=== PATIENT | female | born 1975 | race Caucasian/White ===

== ENCOUNTER → 2017-02-03 | Outpatient (CLI) | payer BC ==
[~2017-02-03] MED LIST: AZEL30SP NAE; CETI10TA84 PO; FLUT0.15; GLUCPOW41 PO; IRON INFUSIONS IV; MULT-506 PO; PSEU60TA80 PO
[2017-02-03 12:12] LABS: BASO % 0.2 %; BASO ABS # 0.01 K/uL (0-0.2); COMPLETE YES; EOS % 0.3 %; HEMATOCRIT 40.7 % (37-47); LYMPH % 24.8 %; LYMPH ABS # 1.62 K/uL (1.2-3.4); MEAN CELL VOLUME 87.9 fL (80-100); MEAN CORPUSCULAR HEMOGLOBIN 28.9 pg (25-34); MEAN CORPUSCULAR HGB CONC 32.9 g/dl (32-36); MONO % 6.7 %; PLATELET COUNT 305 K/uL (130-400); RED BLOOD COUNT 4.63 M/uL (4.2-5.4); WHITE BLOOD COUNT 6.54 K/uL (4.8-10.8)
[2017-02-03 12:18] LABS: GLUCOSE 101 mg/dl (70-99)
[2017-02-03 12:22] LABS: TOTAL IRON BINDING CAPACITY 351 mcg/dl (250-450)
== END | disposition home or self-care (01) ==
LOC: C.LAB1850 09:17
PROVIDERS: ATTEND Internal Medicine
DX: D50.9 Iron deficiency anemia, unspecified (principal); E55.9 Vitamin D deficiency, unspecified; E34.9 Endocrine disorder, unspecified; E53.8 Deficiency of other specified B group vitamins; R73.9 Hyperglycemia, unspecified

== ENCOUNTER → 2017-03-29 | Outpatient (CLI) | payer BC ==
[2017-03-29 09:28] LABS: BASO % 0.2 %; BASO ABS # 0.01 K/uL (0-0.2); COMPLETE YES; EOS % 0.3 %; IG% 0.2 %; LYMPH % 26.1 %; LYMPH ABS # 1.74 K/uL (1.2-3.4); MEAN CELL VOLUME 90.1 fL (80-100); MEAN CORPUSCULAR HEMOGLOBIN 28.8 pg (25-34); MEAN PLATELET VOLUME 11.7 fL (7.4-10.4); MONO % 6.2 %; PLATELET COUNT 297 K/uL (130-400); RED BLOOD COUNT 4.44 M/uL (4.2-5.4); WHITE BLOOD COUNT 6.66 K/uL (4.8-10.8)
[2017-03-29 09:48] LABS: FERRITIN 6.4 ng/ml (8.0-388.0)
== END | disposition home or self-care (01) ==
LOC: C.LAB1850 07:00
PROVIDERS: ATTEND Nurse Practitioner
DX: D50.9 Iron deficiency anemia, unspecified (principal)

== ENCOUNTER → 2017-07-04 | Outpatient (CLI) | payer BC ==
[~2017-07-04] MED LIST changes: -AZEL30SP NAE; -CETI10TA84 PO; -FLUT0.15; -GLUCPOW41 PO; -MULT-506 PO; -PSEU60TA80 PO
--- NOTE | 2017-07-04 12:16 | DIAGNOSTIC IMAGING REPORT ---
VIDEO SWALLOW HISTORY: Dysphagia DYSPHAGIA TECHNIQUE: Video fluoroscopic evaluation of swallowing was performed in the AP and lateral projections by the speech pathology staff. The patient is fed nectar-thick and thin liquid barium, a barium coated wafer, and barium pudding. FLUOROSCOPY TIME: 1.5 minutes. COMPARISON STUDY: None. FINDINGS: There is normal hyoid excursion and epiglottic deflection. No significant penetration or aspiration identified. Swallowing function is within normal limits. Mild esophageal dysmotility IMPRESSION: 1. No aspiration identified. 2. Please see the speech pathologist report for detailed findings and recommendations. The above report was generated using voice recognition software. It may contain grammatical, syntax or spelling errors. Electronically signed by: Otis Oneal M.D. 07/04/2017 12:15 PM Dictated Date/Time: 07/04/2017 12:14 PM
--- NOTE | 2017-07-05 11:16 | SWALLOWING EVALUATION ---
HISTORY: This 41 year old woman was referred for a video swallow study at [facility] in order to rule out aspiration and identify the safest consistencies for optimal oral intake. The patient reports the sensation of food becoming stuck in her throat. She participated in a Barium Swallow study in 2014, with results being wnl. PMH is significant for gastric bypass and anemia. Current diet is regular. PROCEDURE: The patient was seen in the Radiology Department of [facility] for the [facility]SS. Cursory examination of the oral cavity revealed natural dentition in good condition. Oral motor function was wnl. The patient was seated on a stool and was viewed in both the Anterior-Posterior (A-P) and Lateral planes. Volitional phonation exercises completed in the A-P plane revealed bilateral vocal fold movement and vocal intensity within functional limits. In the lateral plane, the patient was given the following boluses: 1 tsp. thin liquid barium x 2, single swallow thin liquid barium self-presented from a cup, sequential swallows of thin liquid barium self-presented from a straw, 1 tsp. nectar-thick liquid barium, single swallow nectar-thick liquid barium self-presented from a cup, 1 tsp. barium pudding, and 1 club cracker coated in barium pudding. The patient was then repositioned into the A-P plane and given the following boluses: 1 tsp. nectar thick barium and 1 tsp. barium pudding. RESULTS: Oral Stage: Lip closure was adequate. The patient was able to maintain a cohesive liquid bolus in the oral cavity without any escape during the liquid bolus hold task. Mastication was timely and efficient. Lingual motion for bolus transport was noted to be slow. There was retention lining the tongue and palate after the swallow. The initiation of the pharyngeal swallow occurred when the bolus head reached the valleculae. Pharyngeal Stage: Soft palate elevation was complete. Laryngeal elevation revealed complete superior movement of the thyroid cartilage with complete approximation of the arytenoids to the epiglottic base. Anterior hyoid excursion and epiglottic deflection were complete. Laryngeal vestibular closure was complete. The pharyngeal stripping wave was present and complete. Pharyngeal contraction was complete. There was complete distention and duration of the opening to the pharyngoesophageal segment (PES). Tongue base retraction was reduced, with a trace column of contrast located between the tongue base and pharyngeal wall during the swallow. There was trace retention located in the valleculae after the swallow. There was no evidence of laryngeal penetration or aspiration during this study. There was minimal retention located in the pharynx after the swallow as well. Esophageal stage: There was mild mid-distal esophageal retention suggestive of esophageal dysmotility. SUMMARY/RECOMMENDATIONS: This patient presents with normal ada-pharyngeal swallowing mechanics. She presents with s/s of esophageal dysphagia. The following is recommended: 1. Regular diet, "slippery" and thin liquids. 2. ALINE precautions. Fully upright for meals and for 30 minutes after meals. Do not lay flat. 3. Safe swallow strategies: Avoid foods that are dry, thick, pasty, or doughy. Use of condiments such as gravy to assist with making foods moist. Rest breaks while eating. Alternate solids and liquids. Small frequent meals. 4. Follow up with PCP. Consider GI consultation and/or medication management for esophageal dysfunction as indicated. A summary of the results and recommendations was discussed with the patient immediately following the study with verbal understanding. The patient was also provided with verbal and written education regarding a "slippery" diet for improved comfort while eating (avoiding foods that are dry, thick, pasty, or doughy) as needed. She verbalized understanding. Thank you for referral of this patient. Please contact me at if any additional information is needed.
== END | disposition home or self-care (01) ==
LOC: C.RAD 11:10
PROVIDERS: ATTEND Internal Medicine Gastroenterology
DX: R13.10 Dysphagia, unspecified (principal); D50.9 Iron deficiency anemia, unspecified

== ENCOUNTER → 2017-07-04 | Outpatient (CLI) | payer BC ==
[2017-07-04 13:17] LABS: BASO % 0.2 %; BASO ABS # 0.01 K/uL (0-0.2); COMPLETE YES; EOS % 0.4 %; HEMATOCRIT 37.7 % (37-47); IG% 0.2 %; LYMPH % 30.5 %; LYMPH ABS # 1.64 K/uL (1.2-3.4); MEAN CELL VOLUME 90.4 fL (80-100); MEAN CORPUSCULAR HEMOGLOBIN 30.2 pg (25-34); MEAN CORPUSCULAR HGB CONC 33.4 g/dl (32-36); MEAN PLATELET VOLUME 11.8 fL (7.4-10.4); MONO % 5.2 %; NEUT % 63.5 %; PLATELET COUNT 270 K/uL (130-400); RED BLOOD COUNT 4.17 M/uL (4.2-5.4); WHITE BLOOD COUNT 5.37 K/uL (4.8-10.8)
== END | disposition home or self-care (01) ==
LOC: C.LAB1850 12:29
PROVIDERS: ATTEND Internal Medicine Hematology & Oncology
DX: D50.9 Iron deficiency anemia, unspecified (principal)

== ENCOUNTER → 2017-07-21 | Outpatient (CLI) | payer BC ==
--- NOTE | 2017-07-21 09:38 | DIAGNOSTIC IMAGING REPORT ---
(BARIUM SWALLOW) ESOPHAGUS CLINICAL HISTORY: DYSPHAGIA COMPARISON STUDY: 07/17/2015 FLUOROSCOPY TIME: 1.5 minutes. NUMBER OF FLUOROSCOPIC IMAGES: 26 FINDINGS: There are postsurgical changes of a gastric bypass. No esophageal masses were visualized. There is no evidence of aspiration. The patient was administered a one half inch barium tablet which obstructed at the level of the esophagogastric junction. The patient's gastrojejunal anastomosis appear patent. IMPRESSION: 1. No esophageal masses identified 2. A 1/2 inch barium tablet obstructed at the level of the esophagogastric junction 3. The gastrojejunostomy was patent. Electronically signed by: Sundeep Luciano M.D. 07/21/2017 9:36 AM Dictated Date/Time: 07/21/2017 9:34 AM
== END | disposition home or self-care (01) ==
LOC: C.RAD 08:27
PROVIDERS: ATTEND Internal Medicine Gastroenterology
DX: R13.10 Dysphagia, unspecified (principal); Z98.0 Intestinal bypass and anastomosis status

== ENCOUNTER → 2017-07-21 | Outpatient (CLI) | payer BC ==
--- NOTE | 2017-07-21 08:54 | DIAGNOSTIC IMAGING REPORT ---
FUSION CT SINUSES W/O CLINICAL HISTORY: 41 years-old Female presenting with R51 Facial painCONTINUED SINONASAL SYMPTOMS DESPITE MAXIMALLY AL. TECHNIQUE: Multidetector CT of the sinuses was performed without the use of intravenous contrast. IV contrast: None. A dose lowering technique was used consistent with the principles of ALARA (as low as reasonably achievable). COMPARISON: None. CT DOSE (mGy.cm): The estimated cumulative dose is 583.81 mGy.cm. FINDINGS: Butter Liquefier topogram: Unremarkable. Minimal layering fluid noted in the left Agger nasi air cell (series 300 image 23). Minimal aerated secretions also noted in a left posterior ethmoid air cell. Paranasal sinuses and mastoid air cells otherwise clear. No sclerosis of the maxillary sinus fernandez to suggest changes of chronic sinusitis. Mild rightward deviation of the osseous nasal septum. Turbinates normal. 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 Nasofrontal the lateral recesses patent bilaterally. 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 Remaining soft tissues of the face within normal limits. Limited intracranial evaluation normal. IMPRESSION: 1. Minimal layering fluid in the left Agger nasi air cell and minimal aerated secretions in a left posterior ethmoid air cell. No bony changes to suggest chronic sinusitis. 2. Bilateral dehiscence of the bony optic canals suggested. Electronically signed by: Jonny Colon M.D. 07/21/2017 8:53 AM Dictated Date/Time: 07/21/2017 8:44 AM
== END | disposition home or self-care (01) ==
LOC: C.CTS 08:24
PROVIDERS: ATTEND Physician Assistant
DX: R51 Headache (principal)

== ENCOUNTER → 2017-09-11 | Day surgery (SDC) | payer BC ==
[2017-08-22 09:26] VITALS: BMI 42.0
[2017-08-31 08:19] VITALS: Ht 185.4 cm; Wt 144.1 kg
--- NOTE | 2017-08-31 08:34 | PAT Medication Instructions ---
Service Date Aug 31, 2017. Current Home Medication List Azelastine Hcl-Fluticasone Pro (Dymista), 2 SPRY SHANE BID Cetirizine (Zyrtec), 10 MG PO QAM Fluticasone Propionate (Nasal) (Flonase Allergy Relief), 1 SPRAY NA BID Ondkuyzjrid-Nwimdgkubcy-Wvgspb (Glucosamine & Chrondroiti), 1 TAB PO BID Multivitamin (Multivitamin), 1 TAB PO QAM Pseudoephedrine-Guaifenesin (Mucinex D), 1 TAB PO QAM Medication Instructions For Your Scheduled Surgery - Hold the following medications starting today: Ndkfhmgjmrb-Lgstzenomrz-Soxlfj (Glucosamine & Chrondroiti), 1 TAB PO BID - Hold the following medications the morning of surgery: Multivitamin (Multivitamin), 1 TAB PO QAM Pseudoephedrine-Guaifenesin (Mucinex D), 1 TAB PO QAM Cetirizine (Zyrtec), 10 MG PO QAM - Take the following medications the morning of surgery with a sip of water: Fluticasone Propionate (Nasal) (Flonase Allergy Relief), 1 SPRAY NA BID Azelastine Hcl-Fluticasone Pro (Dymista), 2 SPRY SHANE BID - Take the following medications as scheduled the night before surgery: Fluticasone Propionate (Nasal) (Flonase Allergy Relief), 1 SPRAY NA BID Azelastine Hcl-Fluticasone Pro (Dymista), 2 SPRY SHANE BID If you have any questions please call us at [phone] or [phone] or [phone]
[2017-08-31 09:43] LABS: BASO % 0.1 %; BASO ABS # 0.01 K/uL (0-0.2); COMPLETE YES; EOS % 0.5 %; HEMATOCRIT 40.3 % (37-47); IG% 0.1 %; LYMPH % 22.8 %; LYMPH ABS # 1.75 K/uL (1.2-3.4); MEAN CELL VOLUME 92.6 fL (80-100); MEAN CORPUSCULAR HEMOGLOBIN 30.1 pg (25-34); MEAN CORPUSCULAR HGB CONC 32.5 g/dl (32-36); MEAN PLATELET VOLUME 11.6 fL (7.4-10.4); MONO % 5.9 %; NEUT % 70.6 %; PLATELET COUNT 290 K/uL (130-400); RED BLOOD COUNT 4.35 M/uL (4.2-5.4); WHITE BLOOD COUNT 7.69 K/uL (4.8-10.8)
[2017-08-31 09:49] LABS: BUN/CREATININE RATIO 16.7 (10-20); CALCIUM 8.7 mg/dl (8.5-10.1); CREATININE 0.71 mg/dl (0.60-1.20); POTASSIUM 4.4 mmol/L (3.5-5.1)
[~2017-09-11] VITALS: Ht 185.4 cm; Wt 144.1 kg
[~2017-09-11] MED LIST changes: +ACETAMINOPHEN/HYDROCODONE ELIX 15 ML/CUP UDP PO PRN; +ATROPINE SULFATE 0.1 MG/ML 5ML SYR IV PRN; +AZEL30SP NAE; +BACITRACIN/POLYMYXIN B OINT 15 GM TUBE EXT ONE; +CETI10TA84 PO; +DEXAMETHASONE SOD INJ 4 MG/ML VIAL ONE; +EpHEDrine SULFATE INJ 50 MG/ML AMP IV PRN; +EpHEDrine SULFATE INJ 50 MG/ML AMP ONE; +FENTANYL CITRATE INJ 50 MCG/1 ML 2 ML VIAL ONE; +FLUT0.15; +GLUCPOW41 PO; +GLYCOPYRROLATE INJ 0.2 MG/ML VIAL ONE; +HYDROCODONE/APAP 2.5MG/108MG ELIX 5 ML UDP PO PRN; -IRON INFUSIONS IV; +LACTATED RINGER'S 1000ML 1,000 ML IV SCH; +LIDOCAINE 2% JELLY 5 ML TUBE EXT ONE; +LIDOCAINE HCL 2% 2 ML VIAL (20MG/ML) ONE; +MIDAZOLAM HCL 1 MG/ML 2ML VIAL ONE; +MULT-506 PO; +NEOSTIGMINE METHYLSULFATE 5 MG/5 ML SYR ONE; +ONDANSETRON INJ 2 MG/ML 2 ML VIAL IV PRN; +ONDANSETRON INJ 2 MG/ML 2 ML VIAL ONE; +PHENYLEPHRINE HCL INJ 10 MG/ML VIAL ONE; +PROPOFOL IV EMULSION 10 MG/ML 20 ML VIAL IV ONE; +PSEU60TA80 PO; +SUCCINYLCHOLINE CHLORIDE 20 MG/ML 10 ML VIAL IV ONE
--- NOTE | 2017-09-11 10:03 | History and Physical: Surg Cnt ---
History & Physical Date Sep 11, 2017. Chief Complaint RECURRENT ACUTE AND CHRONIC TONSILLITIS History of Present Illness The patient is a 41 year old female with complaints of RECURRENT ACUTE AND CHRONIC TONSILLITIS. Past Medical/Surgical History PMH: ABOVE, ALLERGIC RHINITIS, ANEMIA, GERD, ECZEMA, OBESITY, VITAMIN B12 AND D DEFICIENCY PSH: S/P GASTRIC BYPASS, S/P , S/P HERNIA REPAIR, S/P L HIP SURGERY, S/ P KNEE SURGERY Additional History Hepatic Disease: No Endocrine Disorder: No Kidney Disease: No Hypertension: No Heart Disease: No Bleeding Tendencies: No Infectious Diseases: No Allergies Uncoded Allergies: DUST MITES (Allergy, Unknown, sneezing and stuffy nose, 08/31/17) Home Medications Scheduled Azelastine Hcl-Fluticasone Pro (Dymista), 2 SPRY SHANE BID Cetirizine (Zyrtec), 10 MG PO QAM Fluticasone Propionate (Nasal) (Flonase Allergy Relief), 1 SPRAY NA BID Hakhrfpxlne-Hccxivjotnb-Ehuqkq (Glucosamine & Chrondroiti), 1 TAB PO BID Multivitamin (Multivitamin), 1 TAB PO QAM Pseudoephedrine-Guaifenesin (Mucinex D), 1 TAB PO QAM Physical Examination Skin: warm/dry, no rash Eyes: normal inspection, EOMI, sclerae normal ENT: + pertinent finding (2-3+ CRYPTIC TONSILS) Head: normocephalic, atraumatic Neck: supple, no adenopathy, trachea midline Respiratory/Chest: lungs clear, normal breath sounds, no respiratory distress Cardiovascular: regular rate, rhythm, no edema, no murmur Neurologic/Psych: no motor/sensory deficits, alert, normal reflexes, oriented x 3 Diagnosis RECURRENT ACUTE AND CHRONIC TONSILLITIS Plan of Treatment TONSILLECTOMY
--- NOTE | 2017-09-11 10:56 | [facility] Operative Report ---
Operative Report Operative Date Sep 11, 2017. Pre-Operative Diagnosis Recurrent Acute and Chronic Tonsillitis Post-Operative Diagnosis Same Procedure(s) Performed Tonsillectomy Surgeon Dr. Leung Final Assembly Inspector Surgeon(s) None Estimated Blood Loss 25 mL Findings 1. 3+ CRYPTIC ENDOPHYTIC INFLAMED TONSILS WITH TONSILLITH FORMATION Specimens A. Right Tonsil B. Left Tonsil I attest to the content of the Intraoperative Record and any orders documented therein. Any exceptions are noted below.
--- NOTE | 2017-09-11 10:59 | Discharge Instructions ---
Discharge Instructions Date of Service Sep 11, 2017. Admission Reason for Admission: Chronic Tonsillitis Discharge Discharge Diagnosis / Problem: SAME Discharge Goals Goal(s): Therapeutic intervention Activity Recommendations Activity Limitations: as noted below LIGHT ACTIVITY FOR 2 WEEKS . Current Hospital Diet Patient's current hospital diet: Full Liquid Diet Discharge Diet Recommended Diet: Full Liquid Diet Diet Texture: Mechanical Soft (ground) Procedures Procedures Performed: Tonsillectomy Pending Studies Studies pending at discharge: no Medical Emergencies . Who to Call and When: Medical Emergencies: If at any time you feel your situation is an emergency, please call 911 immediately. . Non-Emergent Contact Non-Emergency issues call your: Surgeon . . "Provider Documentation" section prepared by Ashkan Leung. . VTE Core Measure Inpt VTE Proph given/why not?: SCD's
[2017-09-11] MEDS: FENTANYL CITRATE INJ 50 MCG/1 ML 2 ML VIAL IV PRN ×2 (11:25→11:40)
--- NOTE | 2017-09-11 11:29 | OPERATIVE REPORT ---
DATE OF OPERATION: 09/11/2017 PREOPERATIVE DIAGNOSES: 1. Chronic tonsillitis. 2. Tonsillar hypertrophy. POSTOPERATIVE DIAGNOSES: 1. Chronic tonsillitis. 2. Tonsillar hypertrophy. PROCEDURE: Bilateral tonsillectomy. SURGEON: Dr. Ashkan Leung. ANESTHESIA: General endotracheal. ESTIMATED BLOOD LOSS: 25 mL. FINDINGS: 3+ cryptic endophytic tonsils bilaterally with excessive tonsillith formation. SPECIMENS: Right and left tonsil sent separately for permanent pathological assessment. COMPLICATIONS: None. INDICATIONS FOR THE PROCEDURE: The patient is a 41-year-old female with the above-mentioned history, who presents for the above-mentioned procedure on an outpatient elective basis. DESCRIPTION OF PROCEDURE: After informed consent had been obtained from the patient, the patient was wheeled to the operating room and placed on the operating table in the supine position. Monitors were placed. After induction of general endotracheal anesthesia, the table was turned 90 degrees and the patient's head and neck were gently extended. Antibiotic ointment was applied to the lips and a mouth gag was carefully inserted, opened, and stabilized on a roll of towels. The palate was inspected and found to be normal. An Allis clamp was used to grasp the right tonsil in the superior pole and Bovie electrocautery was used to remove the tonsil in the capsular plane with care to preserve the underlying mucosa and musculature of the anterior and posterior tonsillar pillars. The left tonsil was then removed in a similar fashion. The intraoperative findings were 3+ cryptic endophytic tonsils bilaterally with excessive tonsillith formation and evidence of chronic inflammation. Of note, the dissection through the tonsillar capsule was difficult due to the likely prior infections. Estimated blood loss was 25 mL. Tonsil were sent separately for permanent pathological assessment. The mouth gag was then released for 1 minute. This was reopened and hemostasis was confirmed. An orogastric tube was placed and the stomach was suctioned free of air and stomach contents. 2% lidocaine jelly was placed in the bilateral tonsillar fossae for added anesthetic effect. This marked the end of the case. The patient tolerated the procedure well and there were no apparent complications. The patient was extubated and transferred to recovery room in stable condition. I attest to the content of the Intraoperative Record and any orders documented therein. Any exception s are noted below.
[2017-09-11 12:00] VITALS: TEMP 36.5
[2017-09-11 12:27] VITALS: BP 112/76; PULSE 63; O2SAT 98
--- NOTE | 2017-09-11 12:27 | Anesthesia Progress Nt - [facility] ---
Anesthesia Post Op Note Date & Time Sep 11, 2017 at 12:26 Vital Signs Pain Intensity: 7 Vital Signs Past 12 Hours Date Time Temp Pulse Resp B/P (MAP) Pulse Ox O2 Delivery O2 Flow Rate FiO2 09/11/17 12:00 36.5 70 18 130/80 (97) 97 Room Air 09/11/17 11:53 59 11 09/11/17 11:53 58 11 100 09/11/17 11:51 37.0 60 14 153/94 99 Room Air 09/11/17 11:51 142/94 09/11/17 11:48 71 15 09/11/17 11:48 71 15 98 09/11/17 11:46 125/89 09/11/17 11:43 59 15 100 09/11/17 11:43 59 15 09/11/17 11:41 127/86 09/11/17 11:38 67 15 100 09/11/17 11:38 67 15 09/11/17 11:36 143/93 09/11/17 11:33 61 15 09/11/17 11:33 65 15 99 09/11/17 11:31 138/85 09/11/17 11:28 65 23 09/11/17 11:28 65 23 100 09/11/17 11:27 128/95 09/11/17 11:23 66 16 09/11/17 11:23 65 16 100 09/11/17 11:21 130/76 09/11/17 11:18 78 12 100 09/11/17 11:18 74 12 09/11/17 11:16 125/85 09/11/17 11:13 66 23 09/11/17 11:13 68 23 100 09/11/17 11:11 137/86 09/11/17 11:08 71 17 09/11/17 11:08 71 17 100 09/11/17 11:06 131/85 09/11/17 11:04 134/93 09/11/17 11:03 36.9 72 12 134/93 100 Humidified Oxygen 6 Mask 09/11/17 11:03 73 09/11/17 11:03 73 99 09/11/17 08:18 36.6 70 22 130/86 (101) 98 Room Air Notes Mental Status: alert / awake / arousable, participated in evaluation Pt Amnestic to Procedure: Yes Nausea / Vomiting: adequately controlled Pain: adequately controlled Airway Patency, RR, SpO2: stable & adequate BP & HR: stable & adequate Hydration State: stable & adequate Anesthetic Complications: no major complications apparent
== END | disposition home or self-care (01) ==
LOC: X.SURG 07:55
DX: J03.90 Acute tonsillitis, unspecified (principal); D64.9 Anemia, unspecified; K21.9 Gastro-esophageal reflux disease without esophagitis; Z98.84 Bariatric surgery status; Z86.718 Personal history of other venous thrombosis and embolism; E66.01 Morbid (severe) obesity due to excess calories

== ENCOUNTER → 2017-10-20 | Outpatient (CLI) | payer BC ==
[~2017-10-20] MED LIST changes: -ACETAMINOPHEN/HYDROCODONE ELIX 15 ML/CUP UDP PO PRN; -ATROPINE SULFATE 0.1 MG/ML 5ML SYR IV PRN; -BACITRACIN/POLYMYXIN B OINT 15 GM TUBE EXT ONE; -DEXAMETHASONE SOD INJ 4 MG/ML VIAL ONE; +ERGO500037 PO; -EpHEDrine SULFATE INJ 50 MG/ML AMP IV PRN; -EpHEDrine SULFATE INJ 50 MG/ML AMP ONE; -FENTANYL CITRATE INJ 50 MCG/1 ML 2 ML VIAL ONE; -GLYCOPYRROLATE INJ 0.2 MG/ML VIAL ONE; -HYDROCODONE/APAP 2.5MG/108MG ELIX 5 ML UDP PO PRN; -LACTATED RINGER'S 1000ML 1,000 ML IV SCH; -LIDOCAINE 2% JELLY 5 ML TUBE EXT ONE; -LIDOCAINE HCL 2% 2 ML VIAL (20MG/ML) ONE; -MIDAZOLAM HCL 1 MG/ML 2ML VIAL ONE; -NEOSTIGMINE METHYLSULFATE 5 MG/5 ML SYR ONE; -ONDANSETRON INJ 2 MG/ML 2 ML VIAL IV PRN; -ONDANSETRON INJ 2 MG/ML 2 ML VIAL ONE; -PHENYLEPHRINE HCL INJ 10 MG/ML VIAL ONE; -PROPOFOL IV EMULSION 10 MG/ML 20 ML VIAL IV ONE; -SUCCINYLCHOLINE CHLORIDE 20 MG/ML 10 ML VIAL IV ONE
[2017-10-20 09:33] LABS: BASO % 0.3 %; BASO ABS # 0.02 K/uL (0-0.2); EOS % 0.7 %; EOS ABS # 0.05 K/uL (0-0.5); HEMATOCRIT 41.5 % (37-47); HEMOGLOBIN 13.7 g/dL (12.0-16.0); IG# 0.01 K/uL (0.00-0.02); LYMPH % 26.3 %; LYMPH ABS # 1.88 K/uL (1.2-3.4); MEAN CELL VOLUME 92.2 fL (80-100); MEAN CORPUSCULAR HEMOGLOBIN 30.4 pg (25-34); MEAN PLATELET VOLUME 11.5 fL (7.4-10.4); MONO % 8.1 %; MONO ABS # 0.58 K/uL (0.11-0.59); NEUT % 64.5 %; NEUT ABS # 4.62 K/uL (1.4-6.5); PLATELET COUNT 367 K/uL (130-400); RED CELL DISTRIBUTION WIDTH CV 13.2 % (11.5-14.5); RED CELL DISTRIBUTION WIDTH SD 44.4 fL (36.4-46.3); WHITE BLOOD COUNT 7.16 K/uL (4.8-10.8)
== END | disposition home or self-care (01) ==
LOC: C.LAB1850 06:52
PROVIDERS: ATTEND Internal Medicine Hematology & Oncology
DX: D50.9 Iron deficiency anemia, unspecified (principal)

== ENCOUNTER → 2018-03-06 | Outpatient (CLI) | payer BC ==
[~2018-03-06] MED LIST changes: -ERGO500037 PO
[2018-03-06 18:48] LABS: BASO % 0.1 %; BASO ABS # 0.01 K/uL (0-0.2); EOS % 0.3 %; EOS ABS # 0.02 K/uL (0-0.5); HEMATOCRIT 41.4 % (37-47); HEMOGLOBIN 14.3 g/dL (12.0-16.0); IG# 0.01 K/uL (0.00-0.02); LYMPH ABS # 2.04 K/uL (1.2-3.4); MEAN CELL VOLUME 90.2 fL (80-100); MEAN CORPUSCULAR HEMOGLOBIN 31.2 pg (25-34); MEAN CORPUSCULAR HGB CONC 34.5 g/dl (32-36); MEAN PLATELET VOLUME 11.6 fL (7.4-10.4); MONO % 4.3 %; NEUT % 66.2 %; NEUT ABS # 4.66 K/uL (1.4-6.5); PLATELET COUNT 265 K/uL (130-400); RED CELL DISTRIBUTION WIDTH CV 13.3 % (11.5-14.5); RED CELL DISTRIBUTION WIDTH SD 43.8 fL (36.4-46.3); WHITE BLOOD COUNT 7.04 K/uL (4.8-10.8)
== END | disposition home or self-care (01) ==
LOC: C.LAB 17:36
PROVIDERS: ATTEND Internal Medicine Hematology & Oncology
DX: D50.9 Iron deficiency anemia, unspecified (principal); E66.01 Morbid (severe) obesity due to excess calories; E53.8 Deficiency of other specified B group vitamins; E55.9 Vitamin D deficiency, unspecified; R73.9 Hyperglycemia, unspecified; E34.9 Endocrine disorder, unspecified